=== PATIENT | male | born 1945 | race Caucasian/White ===

== ENCOUNTER 2017-06-12 14:45 | Outpatient (RCR) | payer MEDICARE, BC ==
[~2017-06-12 14:45] MED LIST: ASPIRIN E.C. 8181 MG PO; D-2000 90 MG-201 TAB PO; DOXYCYCLINE 10100 MG PO; LIPITOR20 MG PO; MASON NATURAL1200 MG PO; MULTI VITAMINS1 TAB PO; NATURAL E400 IU PO; PLAVIX 75MG TAB75 MG PO; PRIL40; PROSCAR 5MG5 MG PO; VITAMIN A10k PO; VITAMIN C500 MG PO; ZANTAC 150MG T150 MG PO; [UNRECOGNIZED DRUG - OTHER] TP
== END 2017-06-13 10:04 | disposition home or self-care (01) ==
LOC: MKS.ESL.OT 14:45
DX: I63.532 Cerebral infarction due to unspecified occlusion or stenosis of left posterior cerebral artery (principal)
CPT/HCPCS: G8990-GO; G8991-GO; G8992-GO

== ENCOUNTER → 2018-07-30 | Outpatient (CLI) | payer MEDICARE, BC | LOC: COL.RAD 12:06 | DX: Z95.810 Presence of automatic (implantable) cardiac defibrillator (principal) ==

== ENCOUNTER 2019-10-02 07:01 | Day surgery (SDC) | payer MEDICARE, BC ==
[~2019-10-02] VITALS: Ht 172.7 cm; Wt 78.2 kg
[2019-10-02] VITALS (13 sets, daily range): BP systolic 102–137; BP diastolic 63–85; PULSE 55–67; TEMP 98.2
[~2019-10-02 07:01] MED LIST changes: -D-2000 90 MG-201 TAB PO; +MASON NATURAL2000 IU PO
[2019-10-02] MEDS ORDERED: LIPITOR 40MG TA40 MG PO (07:39)
[2019-10-02] MEDS ORDERED: PLAVIX 75MG TAB75 MG PO ×2 (07:39→10:45)
[2019-10-02] MEDS ORDERED: PEPCID 20MG TAB20 MG PO (07:44)
[2019-10-02] MEDS ORDERED: ENTRESTO 97 MG1 EACH PO (07:46)
[2019-10-02] MEDS ORDERED: TOPROL XL100 MG (07:46)
[2019-10-02] MEDS ORDERED: PROBIOTIC FORMU1 CAP PO (07:47)
[2019-10-02 07:54] LABS: HEMATOCRIT 44.8 % (42.0-52.0); MEAN CELL VOLUME 96 fl (80.0-100.0); MEAN CORPUSCULAR HEMOGLOBIN 32 pg (27.0-31.0); MEAN CORPUSCULAR HGB CONC 34 g/dl (33.0-37.0); PLATELET COUNT 201 K/mm3 (130-400); RED BLOOD COUNT 4.66 M/mm3 (4.20-5.60); REDCELL DISTRIBUTION WIDTH-CV 12.5 % (11.5-14.5)
[2019-10-02 08:01] LABS: PROTHROMBIN TIME 11.4 SECONDS (9.7-12.8)
[2019-10-02 08:04] LABS: PARTIAL THROMBOPLASTIN TIME 32.2 SECONDS (26.0-37.0)
[2019-10-02 08:11] LABS: CALCIUM 9.3 mg/dL (8.4-10.2); CREATININE, serum 0.78 (0.66-1.25); POTASSIUM 3.7 mmol/L (3.4-5.0)
--- NOTE | 2019-10-02 08:57 | NUR ---
SEE MERGE DOCUMENTATION FOR MEDICATION ADMINISTRATION TIMES AND INTRA/POST PROCEDURE SEDATION ASSESSMENTS. BARBEAU TEST TO RIGHT HAND NOTED TO BE NEGATIVE WITH COMPRESSION OF RADIAL ARTERY. MD NOTIFIED. PLAN FOR RIGHT FEMORAL ACCESS. MD ALSO NOTIFIED THAT PT DID NOT RECEIVE PLAVIX DOSE TODAY, NO ORDER RECEIVED AT THIS TIME.
--- NOTE | 2019-10-02 10:07 | NUR ---
Pt back from yard laborer, bs report from Karel MENJIVAR. pt is awake and alert, p,w,d, denies any pain at puncture site. rt groin site dressed with gauze and tegaderm, dressing clean and dry, no hematoma noted. cms intact distal. pt aware of poc. he has call light in reach and denies any questions or concerns at this time.
[2019-10-02] MEDS ORDERED: LIPITOR20 MG PO (10:45)
--- NOTE | 2019-10-02 14:30 | NUR ---
Pt is doing well, he has been up and ambulatory in room and to the bathroom with steady gait. Initially pt had some lightheadedness but this improved. he has been able to get dressed with no problem, no bleeding or hematoma to rt groin site. iv was dc'd with cath intact, dressing was applied. pt did eat a meal during his bedrest with no problem. pt verbalizes understanding of dc instructions r/t rt groin site care and activity restrictions as well as return precautions . I instructed pt to call Dr. Molina's office to make a follow up, and to discuss Dr. Molina's suggested med changes. Pt was escorted to exit via wheelchair.
== END 2019-10-02 15:17 | disposition home or self-care (01) ==
LOC: COL.CAR 07:01
PROVIDERS: Internal Medicine Interventional Cardiology
DX: I25.10 Atherosclerotic heart disease of native coronary artery without angina pectoris (principal); I50.9 Heart failure, unspecified; Z79.01 Long term (current) use of anticoagulants; Z79.899 Other long term (current) drug therapy; Z79.82 Long term (current) use of aspirin
CPT/HCPCS: C1760; C1894; J1644; J2250; J3010; Q9967

== ENCOUNTER → 2020-04-19 | Outpatient (CLI) | payer MEDICARE, BC ==
[~2020-04-19] MED LIST changes: +ENTRESTO 97 MG1 EACH PO; +LIPITOR 40MG TA40 MG PO; +PEPCID 20MG TAB20 MG PO; +PROBIOTIC FORMU1 CAP PO; +TOPROL XL100 MG
== END ==
LOC: COL.RAD 07:06
DX: I50.22 Chronic systolic (congestive) heart failure (principal); K29.90 Gastroduodenitis, unspecified, without bleeding; K80.20 Calculus of gallbladder without cholecystitis without obstruction

== ENCOUNTER 2021-08-04 09:20 | Day surgery (SDC) | payer MEDICARE, BC ==
[~2021-08-04] VITALS: Ht 172.7 cm; Wt 75.5 kg
[2021-08-04] MEDS ORDERED: B COMPLEX #11 TA1 PO (09:50)
[2021-08-04] MEDS ORDERED: LIPITOR 40MG TA40 MG PO (09:52)
[2021-08-04] MEDS ORDERED: ZYRTEC10MGSGL (09:56)
[2021-08-04] MEDS ORDERED: EVENING PRIMRO500 MG PO (09:57)
[2021-08-04 10:09] VITALS: BP 116/79; PULSE 74; TEMP 97.8
[2021-08-04 10:55] VITALS: BP 110/68; PULSE 67; TEMP 97
--- NOTE | 2021-08-04 10:55 | NUR ---
PT TO BAY 4 VIA CART FROM ENDO ROOM, WALKED TO CHAIR, CALL LIGHT IN REACH TAKES MECHE, NO C/O
[2021-08-04 11:15] VITALS: BP 110/60; PULSE 66
--- NOTE | 2021-08-04 11:15 | NUR ---
DR HERE TO SEE PT
[2021-08-04 11:30] VITALS: BP 103/65; PULSE 64
--- NOTE | 2021-08-04 11:30 | NUR ---
IV D'CD INTACT, REVIEWED DISCHARGED INST. WITH PT ON PRECAUTIONS, ACTIVITY AND FOLLOWUP WITH VERBAL UNDERSTANDING. PT CALLED FOR RIDE AND DISCHARGED AT 1145
== END 2021-08-04 11:45 | disposition home or self-care (01) ==
LOC: SDCO 09:20
DX: Z12.11 Encounter for screening for malignant neoplasm of colon (principal); D12.8 Benign neoplasm of rectum; K57.30 Diverticulosis of large intestine without perforation or abscess without bleeding
CPT/HCPCS: J2704; J7120

== ENCOUNTER 2023-05-31 11:15 | Outpatient (RCR) | payer MEDICARE, BC ==
[~2023-05-31 11:15] MED LIST changes: +B COMPLEX #11 TA1 PO; +EVENING PRIMRO500 MG PO; +ZYRTEC10MGSGL
== END 2023-06-09 | disposition home or self-care (01) ==
LOC: WSPT
DX: M25.552 Pain in left hip (principal)

== ENCOUNTER → 2023-07-01 | Outpatient (CLI) | payer SELFPAY | LOC: WSPT 11:15 | DX: M25.552 Pain in left hip (principal) ==

== ENCOUNTER 2023-07-08 11:15 | Outpatient (RCR) | payer MEDICARE, BC | END 2023-07-10 | disposition home or self-care (01) | LOC: WSPT | DX: M25.552 Pain in left hip (principal) ==

== ENCOUNTER 2023-07-19 11:15 | Outpatient (RCR) | payer MEDICARE, BC | END 2023-08-08 | disposition home or self-care (01) | LOC: WSPT | DX: M25.552 Pain in left hip (principal) ==